=== PATIENT | male | born 1965 | race Caucasian/White ===

== ENCOUNTER 2017-03-15 08:35 | Day surgery (SDC) | payer OTHER ==
--- NOTE | ~2017-03-15 | EGD ---
EGD REPORT [facility] [address] [place] [address] NAME: KIMO SHAVER : [birth year] STATUS : REG [facility]#: [id number] AGE: 52 ADM/REG DATE : 03/15/17 MR#: [id number] REPORT SERV DATE: 03/15/17 DICTATED BY: MAGDALENA GRAMAJO DATE: 03/15/17 REPORT STATUS : Draft TRANSCRIBED BY: [employer] DATE: 03/15/17 [facility] Patient Name: Kimo Shaver Date of : 1965 Attending MD: MAGDALENA GRAMAJO MD Procedure Date No Time: 03/15/2017 Procedure: Colonoscopy Indications: Screening in patient at increased risk: Family history of 1st-degree relative with colorectal cancer Referring MD: QUIANA ARENAS Medicines: as per anesthesia Complications: No immediate complications. Procedure: Pre-Anesthesia Assessment: - ASA Grade Assessment: III - A patient with severe systemic disease. After I obtained informed consent, the scope was passed under direct vision. Throughout the procedure, the patient's blood pressure, pulse, and oxygen saturations were monitored continuously. The PCF [id number] was introduced through the anus and advanced to the cecum, identified by appendiceal orifice and ileocecal valve. The colonoscopy was performed without difficulty. The patient tolerated the procedure. The quality of the bowel preparation was adequate to identify polyps. Findings: The perianal and digital rectal examinations were normal. A sessile polyp was found in the sigmoid colon. The polyp was 5 mm in size. The polyp was removed with a jumbo cold forceps. Resection and retrieval were complete. A sessile polyp was found in the recto-sigmoid colon. The polyp was 9 mm in size. The polyp was removed with a jumbo cold forceps. Resection and retrieval were complete. A few medium-mouthed diverticula were found in the sigmoid colon. Internal hemorrhoids were found during endoscopy and were mild. Impression: - One 5 mm polyp in the sigmoid colon. Resected and retrieved. - One 9 mm polyp at the recto-sigmoid colon. Resected and retrieved. - Diverticulosis in the sigmoid colon. - Internal hemorrhoids. Recommendation: - Await pathology results. - Repeat colonoscopy for surveillance based on pathology EGD REPORT [address] [address] NAME: KIMO SHAVER : [birth year] STATUS : REG [facility] [place] [id number] AGE: 52 ADM/REG DATE : 03/15/17 MR#: [id number] REPORT SERV DATE: 03/15/17 DICTATED BY: MAGDALENA GRAMAJO DATE: 03/15/17 REPORT STATUS : Draft TRANSCRIBED BY: [employer] DATE: 03/15/17 results. Procedure Code(s): --- Professional --- 77581, Colonoscopy, flexible, proximal to splenic flexure; with biopsy, single or multiple Diagnosis Code(s): --- Professional --- D12.7, Benign neoplasm of rectosigmoid junction D12.5, Benign neoplasm of sigmoid colon K64.8, Other hemorrhoids K57.30, Diverticulosis of large intestine without perforation or abscess without bleeding Z12.11, Encounter for screening for malignant neoplasm of colon Z80.0, Family history of malignant neoplasm of digestive organs CPT copyright 2013 [employer]. All rights reserved. The codes documented in this report are preliminary and upon shorer review may be revised to meet current compliance requirements. MAGDALENA GRAMAJO MD 03/15/2017 10:55 AM This report has been signed electronically. Number of Addenda: 0 Note Initiated On: 03/15/2017 10:04 AM Scope Withdrawal Time 0 hours 28 minutes 0 seconds [address] [phone]
[~2017-03-15 08:35] MED LIST: ADVIL PO; ALEVE220 MG PO; EFFEX75 PO; HCTZ; HYDROCHLOROT25 MG PO; METOPROL; NORV10 PO; PHENTERMINE37.5 M1 PO; SIMVASTATIN; TESTOSTERONE IM/SC
== END 2017-03-15 23:59 | disposition home or self-care (01) ==
LOC: DMU 08:35
PROVIDERS: Internal Medicine Gastroenterology
PROC: 0DBE8ZX Excision of Large Intestine, Via Natural or Artificial Opening Endoscopic, Diagnostic (ICD-10-PCS; 2017-03-15)
PROC: 0DBN8ZX Excision of Sigmoid Colon, Via Natural or Artificial Opening Endoscopic, Diagnostic (ICD-10-PCS; principal; 2017-03-15 10:00)
DX: Z12.11 Encounter for screening for malignant neoplasm of colon (principal); K63.5 Polyp of colon; K64.8 Other hemorrhoids; K57.30 Diverticulosis of large intestine without perforation or abscess without bleeding; J44.9 Chronic obstructive pulmonary disease, unspecified; F17.210 Nicotine dependence, cigarettes, uncomplicated; Z80.0 Family history of malignant neoplasm of digestive organs; Z88.5 Allergy status to narcotic agent
CPT/HCPCS: 88305